=== PATIENT | male | born 1985 | race Caucasian/White ===

== ENCOUNTER → 2016-07-03 | Outpatient (CLI) | payer OTHER ==
[~2016-07-03] MED LIST: MAGNEVIST IV PRN; OMEP40CA PO
--- NOTE | 2016-07-03 10:03 | DIAGNOSTIC IMAGING REPORT ---
MRI ABDOMEN COMBO CLINICAL HISTORY: Pancreatic mass TECHNIQUE: Imaging was performed prior to and following IV contrast injection. COMPARISON STUDY: CT scan dated 12/31/2015 FINDINGS: Imaging was performed in the coronal and axial planes, before and after the administration of 20 cc intravenous Magnevist. No hepatic masses are visualized. The spleen measures 13.5 cm in length. No splenic masses are visualized. The gallbladder appears normal. There is no ductal dilatation. There is no evidence of abdominal aortic dilatation. There is a stable deformity involving the upper pole the right kidney, likely representing an area of scarring. No pancreatic masses are visualized. The previously queried 3 mm lesion within the tail the pancreas is not confirmed. Postcontrast images reveal no pathologically enhancing masses. IMPRESSION: 1. No acute findings 2. No pancreatic masses are visualized. 3. Upper pole right renal cortical scarring Electronically signed by: Delfin Fernandez M.D. 07/03/2016 10:02 AM Dictated Date/Time: 07/03/2016 9:57 AM
== END | disposition home or self-care (01) ==
LOC: C.MRI 08:46
PROVIDERS: ATTEND Registered Nurse
DX: K86.9 Disease of pancreas, unspecified (principal)